=== PATIENT | male | born 1990 | race Caucasian/White ===

== ENCOUNTER 2024-07-29 12:29 | Day surgery (SDC) | payer OTHER ==
[2024-07-29] MEDS: Lactated Ringers 1,000 ML IV SCH (12:54)
== END 2024-07-29 14:20 | disposition home or self-care (01) ==
LOC: CC.SDS 12:29
PROVIDERS: ATTEND Family Medicine
DX: K64.8 Other hemorrhoids (principal); K59.00 Constipation, unspecified
CPT/HCPCS: J7120